=== PATIENT | female | born 1960 | race Caucasian/White ===

== ENCOUNTER 2017-05-19 14:24 | Emergency (ER) | payer BC ==
[~2017-05-19] VITALS: Ht 167.6 cm; Wt 99.1 kg
[2017-05-19] MEDS ORDERED: HYDR200T3 (14:32)
[2017-05-19] MEDS ORDERED: LEVO175T2 (14:32)
[2017-05-19] MEDS ORDERED: CYCL10TA (14:32)
[2017-05-19 16:07] LABS: BASO % 0.7 % (0.0-1.0); EOS # 0.1 10^3/uL (0.0-0.50); EOS % 1.8 % (0.0-3.0); IMMATURE GRANULOCYTE % 0.5 % (0-0); LYMPH # 1.2 10^3/uL (1.5-4.5); LYMPH % 26.6 % (24.0-44.0); MEAN CORPUSCULAR HEMOGLOBIN 29.1 pg (27.0-33.0); MEAN CORPUSCULAR HGB CONC 33.6 g/dl (32.0-36.5); MEAN CORPUSCULAR VOLUME 86.6 fl (80.0-96.0); MONO # 0.3 10^3/uL (0.0-0.8); MONO % 6.7 % (0.0-5.0); NEUTROPHILS # 2.8 10^3/uL (1.8-7.7); NEUTROPHILS % 63.7 % (36.0-66.0); PLATELET COUNT, AUTOMATED 243 10^3/uL (150-450); RED CELL DISTRIBUTION WIDTH 13.1 % (11.5-14.5); WHITE BLOOD COUNT 4.3 10^3/uL (4.0-10.0)
[2017-05-19 16:30] LABS: ALBUMIN/GLOBULIN RATIO 1.38 (1.00-1.93); ALKALINE PHOSPHATASE 84 U/L (45-117); ALT/SGPT 29 U/L (12-78); ANION GAP 6 MEQ/L (8-16); AST/SGOT 20 U/L (15-37); BILIRUBIN,TOTAL 0.2 MG/DL (0.2-1.0); BLOOD UREA NITROGEN 21 MG/DL (7-18); CALCIUM LEVEL 8.9 MG/DL (8.5-10.1); CARBON DIOXIDE LEVEL 28 MEQ/L (21-32); CHLORIDE LEVEL 107 MEQ/L (98-107); CREATININE FOR GFR 0.89 MG/DL (0.55-1.02); GLOMERULAR FILTRATION RATE > 60.0 (>51); GLUCOSE, FASTING 103 MG/DL (70-105); POTASSIUM SERUM 4.5 MEQ/L (3.5-5.1); SODIUM LEVEL 141 MEQ/L (136-145); TOTAL PROTEIN 6.9 GM/DL (6.4-8.2)
[2017-05-19 16:43] LABS: ERYTHROCYTE SEDIMENTATION RATE 13 mm/hr (0-30)
[2017-05-19] MEDS ORDERED: MEDR4PAK PO (17:07)
[2017-05-19] MEDS ORDERED: IBUP80TA PO (17:08)
[2017-05-19] MEDS ORDERED: TYLE325T5 PO (17:08)
[2017-05-19 17:20] VITALS: BP 146/86
--- NOTE | 2017-05-20 11:39 | REP ---
REASON: Headache. PRIORS: None. TECHNIQUE: 4.5 mm contiguous transaxial sections were obtained from the skull base to the cerebral convexities with thin cuts through the posterior fossa without the administration of intravenous contrast. FINDINGS: The ventricles and sulci are consistent with the patient's age. There are no extra-axial fluid collections. There is no mass effect. The deep cerebral white matter is consistent with the patient's age. The orbital and petrous structures , cerebellopontine angles, and posterior fossa are unremarkable. The sella turcica, cavernous, and paracavernous structures are essentially unremarkable. The visualized portions of the paranasal sinuses and mastoid air cells are clear. Images of the skull base show no gross abnormality. IMPRESSION: Essentially unremarkable CT examination of the brain. Signed by Kt Ovalles DO 05/20/2017 09:46 A
== END 2017-05-19 17:22 | disposition home or self-care (01) ==
LOC: M ED 14:24
DX: R51 Headache (principal); E03.9 Hypothyroidism, unspecified; M32.9 Systemic lupus erythematosus, unspecified; Z88.0 Allergy status to penicillin; Z79.899 Other long term (current) drug therapy; Z87.891 Personal history of nicotine dependence

== ENCOUNTER → 2018-08-30 | Outpatient (REF) | payer BC ==
[~2018-08-30] MED LIST: CYCL10TA; HYDR200T3; IBUP80TA PO; LEVO175T2; MEDR4PAK PO; TYLE325T5 PO
[2018-08-30 11:04] LABS: HEMATOCRIT 37.6 % (36.0-47.0); HEMOGLOBIN 12.6 g/dl (12.0-15.5); MEAN CORPUSCULAR HEMOGLOBIN 28.4 pg (27.0-33.0); MEAN CORPUSCULAR HGB CONC 33.5 g/dl (32.0-36.5); MEAN CORPUSCULAR VOLUME 84.7 fl (80.0-96.0); PLATELET COUNT, AUTOMATED 242 10^3/uL (150-450); RED BLOOD COUNT 4.44 10^6/uL (4.00-5.40)
[2018-08-30 12:40] LABS: ATYPICAL LYMPH 6 % (0-5); BASOPHILS 1 % (0-4); EOSINOPHILS 4 % (0-5); LYMPHOCYTES 22 % (16-52); MONOCYTES 20 % (0-8); NEUTROPHILS 43 % (35-75)
[2018-08-30 12:41] LABS: PLATELET ESTIMATE NORMAL (NORMAL)
== END ==
LOC: M LAB REF 10:31
PROVIDERS: ATTEND Family Medicine
DX: D72.819 Decreased white blood cell count, unspecified (principal)

== ENCOUNTER → 2020-06-22 | Outpatient (CLI) | payer OTHER ==
[~2020-06-22] MED LIST changes: +CYCL-707; -CYCL10TA; +GASTROGRAFIN SOLUTION 30ML (Q9963) As Ordered ONE; +ISOVUE-370 76% 100ML VIAL As Ordered ONE
--- NOTE | 2020-06-22 12:51 | REP ---
INDICATION: ABDOMINAL PAIN, LLQ. COMPARISON: CT 07/31/2008 TECHNIQUE: Oral Gastrografin mixture per our bowel contrast protocol followed by bolus 100 mL Isovue 370 scanning through the abdomen and pelvis and both coronal and sagittal reconstructions provided. FINDINGS: CT abdomen: Lung bases show curvilinear fibro atelectatic change in the left lower lobe similar to the previous study no pleural effusion acute infiltrate or parenchymal mass. See no hiatal hernia heart is not grossly enlarged. There is no pericardial thickening or effusion. There is no hepatosplenomegaly, mass within either of these organs, biliary dilatation or adjacent ascites. The gallbladder shows no calcified stone or mass. Pancreas unremarkable. Adrenal glands are normal small bowel loops are contrast filled and without dilatation or wall thickening. Scattered stool and gas throughout the colon with no sign of colitis or diverticulitis in the abdomen proper. Appendix is absent. The kidneys show a few small cysts bilaterally without hydronephrosis or stone there are a few small pericolonic cecal nodes these are not pathologic sized. The aorta is without aneurysm or dissection there are few scattered periaortic nodes which are not enlarged. Mesentery and remainder of the intra-abdominal region without adenopathy. No ventral or inguinal hernia. I see no perforation or free air on lung window review of all CT slices. Bony windows show lumbar and lower thoracic vertebral bodies without acute findings. There is some facet arthropathy without spondylolysis. Visualized ribs intact. CT pelvis: Sacrum, SI joints, pelvis and hips show minimal degenerative change. No destructive lesion. Scattered stool and gas in the distal left colon sigmoid and rectum with no sign of colitis, diverticulitis, stricture or mass by CT. Small bowel loops in the pelvis were unremarkable. No ventral or inguinal hernia nor pathologic sized inguinal adenopathy. Bladder without mass wall thickening or stone. Uterus is absent the vaginal cuff intact. No pelvic mass. IMPRESSION: 1. No CT evidence of colitis, diverticulitis, abscess, stricture or mass involving the colon. Small bowel loops are likewise without dilatation, bowel wall thickening or edema nor other acute finding. 2. Kidneys show a few small cysts without mass, hydronephrosis or stone. Ureters show normal course to the bladder without stone or dilatation. 3. Solid organs in the upper abdomen grossly unremarkable. The gallbladder and stomach were unremarkable no hiatal hernia. 4. Bones show no acute finding. Prior hysterectomy. No pelvic mass. <Electronically signed by Anupam Arroyo > 06/22/20 [id number]
== END ==
LOC: M RAD 09:33
PROVIDERS: ATTEND Physician Assistant
DX: R10.32 Left lower quadrant pain (principal); Z90.79 Acquired absence of other genital organ(s)
CPT/HCPCS: 74177; Q9963; Q9967

== ENCOUNTER → 2021-03-25 | Outpatient (REF) | payer OTHER ==
[~2021-03-25] MED LIST changes: -GASTROGRAFIN SOLUTION 30ML (Q9963) As Ordered ONE; -ISOVUE-370 76% 100ML VIAL As Ordered ONE
== END ==
LOC: M LAB REF 16:54
PROVIDERS: ATTEND Family Medicine
DX: M32.9 Systemic lupus erythematosus, unspecified (principal); R53.83 Other fatigue

== ENCOUNTER → 2021-08-29 | Outpatient (CLI) | payer OTHER | LOC: M RAD 15:00 | PROVIDERS: ATTEND Surgery | DX: R10.814 Left lower quadrant abdominal tenderness (principal) ==

== ENCOUNTER → 2022-07-12 | Outpatient (CLI) | payer OTHER ==
[~2022-07-12] MED LIST changes: +IBUP-1022 PO; +OMEP40CA5; +PERC5TAB12 PO
== END ==
LOC: M RAD 11:10
PROVIDERS: ATTEND Family Medicine
DX: R07.81 Pleurodynia (principal)

== ENCOUNTER → 2022-09-11 | Outpatient (REF) | payer OTHER | LOC: M LAB REF 16:16 | PROVIDERS: ATTEND Family Medicine | DX: R39.15 Urgency of urination (principal) ==

== ENCOUNTER → 2022-12-15 | Outpatient (CLI) | payer OTHER | LOC: M WUC 12:27 | PROVIDERS: ATTEND Physician Assistant Medical | DX: M54.50 Low back pain, unspecified (principal) ==

== ENCOUNTER → 2023-02-05 | Outpatient (CLI) | payer OTHER ==
[~2023-02-05] MED LIST changes: -HYDR200T3; +HYDR200T46
== END ==
LOC: M WUC 14:15
PROVIDERS: ATTEND Internal Medicine
DX: R07.2 Precordial pain (principal)

== ENCOUNTER → 2023-02-15 | Outpatient (CLI) | payer OTHER | LOC: M WUC 10:42 | PROVIDERS: ATTEND Internal Medicine | DX: R07.2 Precordial pain (principal) ==

== ENCOUNTER → 2023-11-02 | Outpatient (REF) | payer OTHER | LOC: M LAB REF 11:26 | PROVIDERS: ATTEND Family Medicine | DX: E03.9 Hypothyroidism, unspecified (principal) ==

== ENCOUNTER → 2023-11-26 | Outpatient (REF) | payer OTHER | LOC: M SFHCWAGY 08:53 | PROVIDERS: ATTEND Nurse Practitioner Family | DX: Z12.72 Encounter for screening for malignant neoplasm of vagina (principal); Z11.51 Encounter for screening for human papillomavirus (HPV) ==

== ENCOUNTER → 2024-03-06 | Outpatient (CLI) | payer OTHER | LOC: M RAD 16:36 | PROVIDERS: ATTEND Family Medicine | DX: R07.82 Intercostal pain (principal); T17.920A Food in respiratory tract, part unspecified causing asphyxiation, initial encounter; R93.7 Abnormal findings on diagnostic imaging of other parts of musculoskeletal system ==

== ENCOUNTER → 2024-10-21 | Outpatient (REF) | payer MEDICARE | LOC: M SFHCDERM 12:36 | PROVIDERS: ATTEND Physician Assistant | DX: L01.00 Impetigo, unspecified (principal) ==

== ENCOUNTER → 2024-11-26 | Outpatient (CLI) | payer MEDICARE, OTHER | LOC: M WHC 10:06 | PROVIDERS: ATTEND Nurse Practitioner Family | DX: Z12.31 Encounter for screening mammogram for malignant neoplasm of breast (principal) ==

== ENCOUNTER → 2025-07-30 | Outpatient (CLI) | payer MEDICARE ==
[~2025-07-30] MED LIST changes: -IBUP-1022 PO; +IBUP600T42 PO; +SYNT150T PO
== END ==
LOC: M RAD 14:32
PROVIDERS: ATTEND Physician Assistant
DX: R05.9 Cough, unspecified (principal)